=== PATIENT | female | born 1940 | race Caucasian/White ===

== ENCOUNTER 2023-06-11 14:59 | Observation (INO) | payer OTHER ==
[~2023-06-11] VITALS: Ht 149.9 cm; Wt 60.5 kg
[2023-06-11] VITALS (10 sets, daily range): BP systolic 115–166; BP diastolic 48–100; PULSE 60–70; RESP 13–22; TEMP 97.9–98.2; O2SAT 97–100
[2023-06-11 15:54] LABS: Eosinophils # (auto) 0.1 10 ^3/uL (0-0.8); Lymphocytes # (auto) 2.2 10 ^3/uL (0.4-5.4); Lymphocytes % (auto) 16.9 % (10.0-50.0); Mean Corpuscular Hgb Conc. 27.9 g/dL (32.0-36.0); Monocytes # (auto) 2.1 10 ^3/uL (0-1.3); Neutrophils # (auto) 8.4 10 ^3/uL (1.6-8.6); Nucleated Red Blood Cells % 1.8 %
[2023-06-11 15:56] LABS: Basophils # (auto) 0 10 ^3/uL (0-0.2); Basophils % (auto) 0.4 % (0.0-2.0); Eosinophils % (auto) 1.1 % (0.0-7.0); Hematocrit 20.4 % (36.0-46.0); Mean Corpuscular Hemoglobin 18.5 pg (28.0-32.0); Mean Corpuscular Volume 66.3 fL (80.0-100.0); Monocytes % (auto) 16.5 % (0.0-12.0); Neutrophils % (auto) 65.1 % (37.0-80.0); Red Blood Cells 3.08 10^6/uL (4.0-5.20); Red Cell Distribution Width 19.6 % (11.8-14.3); White Blood Cell 12.9 10^3/uL (4.4-10.8)
[2023-06-11 16:03] LABS: Hemoglobin 5.7 g/dL (12.2-16.2)
[2023-06-11 16:11] LABS: Alanine Aminotransferase 10 U/L (7-40); Albumin 3.9 g/dL (3.2-4.8); Alkaline Phosphatase 50 U/L (46-116); Anion Gap 12 (5-15); Aspartate Aminotransferase 13 U/L (13-40); BUN/Creatinine Ratio 20.2 (10.0-20.0); Bilirubin, Total 0.6 mg/dL (0.2-1.0); Blood Urea Nitrogen 19 mg/dL (9-23); Carbon Dioxide 18 mmol/L (20-30); Chloride 107 mmol/L (98-107); Glucose 161 mg/dL (74-106); INR 2.29 (0.9-1.15); Partial Thromboplastin Time 36.3 SEC (24.5-34.5); Potassium 4.6 mmol/L (3.5-5.1); Prothrombin Time 22.8 sec (9.3-11.8); Sodium 137 mmol/L (136-145); Total Protein 6.4 g/dL (5.7-8.2)
[2023-06-11 16:28] LABS: Hypochromia Marked
[2023-06-11 16:29] LABS: Ovalocytes FEW
[2023-06-11 16:30] LABS: Platelet Estimate Adequate; Target Cell FEW; Tear Drop Cells FEW
[2023-06-11] MEDS ORDERED: PIPERACILLIN-TAZOB 3.375GM 100 ML IV ONE (16:45)
[2023-06-11] MEDS ORDERED: FUROSEMIDE 40 MG/4 ML VIAL IV ONE (19:30)
[2023-06-11] MEDS ORDERED: MORPHINE SULFATE INJ 2 MG/ml SYRG IV PRN (20:15)
[2023-06-11] MEDS ORDERED: SOD CHL 0.45% 1,000 ML IV ONE (20:15)
[2023-06-11] MEDS ORDERED: NITROGLYCERIN 0.4 MG SL TAB SL PRN (20:15)
[2023-06-11] MEDS ORDERED: CIPROFLOXACIN 400MG/200ML 200 ML IV SCH (22:00)
[2023-06-11 23:03] LABS: Urine Bacteria MANY /hpf (None Seen); Urine Blood Negative /uL (Negative); Urine Clarity Clear (Clear); Urine Color Colorless (Yellow); Urine Hyaline Cast FEW /lpf (0 - 2); Urine Protein, UAD Negative (Negative); Urine Urobilinogen Normal (Negative); Urine WBC 4 /hpf (0 - 5); Urine pH 5.5 (5.0-8.0)
[2023-06-12] VITALS (15 sets, daily range): BP systolic 104–144; BP diastolic 56–82; PULSE 59–62; RESP 13–24; TEMP 97.7–98.3; O2SAT 94–100
[2023-06-12 05:09] LABS: Hematocrit 29.5 % (36.0-46.0); Hemoglobin 9.4 g/dL (12.2-16.2); Mean Corpuscular Hemoglobin 23.5 pg (28.0-32.0); Mean Corpuscular Volume 73.7 fL (80.0-100.0)
[2023-06-12 05:18] LABS: Albumin 3.8 g/dL (3.2-4.8); Alkaline Phosphatase 49 U/L (46-116); Anion Gap 9 (5-15); Aspartate Aminotransferase 12 U/L (13-40); Bilirubin, Total 1.3 mg/dL (0.2-1.0); Blood Urea Nitrogen 15 mg/dL (9-23); Calcium 8.6 mg/dL (8.7-10.4); Carbon Dioxide 22 mmol/L (20-30); Chloride 108 mmol/L (98-107); Glucose 117 mg/dL (74-106); Potassium 3.7 mmol/L (3.5-5.1); Sodium 139 mmol/L (136-145); Total Protein 6.4 g/dL (5.7-8.2)
[2023-06-12 05:25] LABS: BUN/Creatinine Ratio 15.6 (10.0-20.0)
[2023-06-12 05:35] LABS: Alanine Aminotransferase < 9 U/L (7-40)
[2023-06-12 05:37] LABS: Red Cell Distribution Width 27.5 % (11.8-14.3)
[2023-06-12 05:38] LABS: Basophils % (manual) 0 (0.0-2.0); Blast Cells 0; Metamyelocytes % 0; Myelocytes % 0; Promyelocytes % 0; Reactive Lymphocytes 0
[2023-06-12 08:12] LABS: Anisocytosis Moderate; Band Neutrophils % (manual) 3; Eosinophils % (manual) 1 (0-7); Hypochromia Marked; Lymphocytes % (manual) 10 (10.0-50.0); Monocytes % (manual) 7 (0-12); Platelet Estimate Adequate
[2023-06-12 08:13] LABS: Ovalocytes FEW; Stomatocytes Few; Target Cell FEW; Tear Drop Cells FEW
[2023-06-12] MEDS ORDERED: FUROSEMIDE 100 MG/10ML VIAL IV ONE (09:30)
[2023-06-12] MEDS: metroNIDAZOLE 500MG/100ML 100 ML IV SCH ×3 (09:53→22:28)
[2023-06-12] MEDS: AZITHROMYCIN 500MG/ 250ML 250 ML IV SCH (09:53)
[2023-06-12] MEDS: cefTRIAXone 1GM/50ML D5W 50 ML IV SCH (09:53)
[2023-06-12] MEDS ORDERED: TIMO0.5S66 EACHEYE (10:02)
[2023-06-12] MEDS ORDERED: BRIM0.159 OP (10:02)
[2023-06-12] MEDS ORDERED: LATA0.008 EACHEYE (10:02)
[2023-06-12] MEDS ORDERED: SIMV40TA18 PO (10:02)
[2023-06-12] MEDS ORDERED: BENA-30 PO (10:02)
[2023-06-12] MEDS ORDERED: OMEP20TA PO (10:02)
[2023-06-12] MEDS ORDERED: RIVA20TA PO (10:02)
[2023-06-12] MEDS: ALBUTEROL MEDNEB 2.5 mg/3ml NEB NEB SCH ×2 (13:55→22:25)
[2023-06-12] MEDS: PANTOPRAZOLE 40 MG/10 ML VIAL INJ IV SCH (22:26)
[2023-06-13] VITALS (8 sets, daily range): BP systolic 120–144; BP diastolic 52–65; PULSE 60–69; RESP 16–21; TEMP 36.8; O2SAT 93–100
[2023-06-13 06:05] LABS: INR 1.11 (0.9-1.15); Prothrombin Time 11.6 sec (9.3-11.8)
[2023-06-13] MEDS: ALBUTEROL MEDNEB 2.5 mg/3ml NEB NEB SCH ×2 (07:22→14:42)
[2023-06-13] MEDS: PANTOPRAZOLE 40 MG/10 ML VIAL INJ IV SCH (10:41)
[2023-06-13] MEDS: metroNIDAZOLE 500MG/100ML 100 ML IV SCH (10:41)
[2023-06-13] MEDS: AZITHROMYCIN 500MG/ 250ML 250 ML IV SCH (10:42)
[2023-06-13] MEDS: cefTRIAXone 1GM/50ML D5W 50 ML IV SCH (10:47)
[2023-06-13 11:09] LABS: Alanine Aminotransferase 10 U/L (7-40); Albumin 3.7 g/dL (3.2-4.8); Alkaline Phosphatase 46 U/L (46-116); Anion Gap 5 (5-15); Aspartate Aminotransferase 15 U/L (13-40); BUN/Creatinine Ratio 13.6 (10.0-20.0); Blood Urea Nitrogen 9 mg/dL (9-23); Calcium 8.7 mg/dL (8.5-10.1); Carbon Dioxide 25 mmol/L (20-30); Chloride 109 mmol/L (98-107); Glucose 113 mg/dL (74-106); Potassium 3.6 mmol/L (3.5-5.1); Sodium 139 mmol/L (136-145)
[2023-06-13 11:10] LABS: Eosinophils # (auto) 0.2 10 ^3/uL (0-0.8); Hemoglobin 9.2 g/dL (12.2-16.2); Nucleated Red Blood Cells % 0.3 %; Red Cell Distribution Width 26.8 % (11.8-14.3); Total Protein 6.3 g/dL (5.7-8.2)
[2023-06-13 11:13] LABS: Basophils # (auto) 0 10 ^3/uL (0-0.2); Basophils % (auto) 0.4 % (0.0-2.0); Eosinophils % (auto) 1.4 % (0.0-7.0); Hematocrit 29.5 % (36.0-46.0); Lymphocytes # (auto) 1.1 10 ^3/uL (0.4-5.4); Lymphocytes % (auto) 9.8 % (10.0-50.0); Mean Corpuscular Hemoglobin 23.1 pg (28.0-32.0); Mean Corpuscular Hgb Conc. 31.3 g/dL (32.0-36.0); Mean Corpuscular Volume 73.8 fL (80.0-100.0); Monocytes # (auto) 1.9 10 ^3/uL (0-1.3); Monocytes % (auto) 16.9 % (0.0-12.0); Neutrophils # (auto) 7.9 10 ^3/uL (1.6-8.6); Neutrophils % (auto) 71.5 % (37.0-80.0); Red Blood Cells 3.99 10^6/uL (4.0-5.20); White Blood Cell 11.1 10^3/uL (4.4-10.8)
[2023-06-13] MEDS ORDERED: AUG875T PO (13:42)
[2023-06-13] MEDS ORDERED: DOXY-448 PO (13:42)
[2023-06-13] MEDS ORDERED: FUROSEMIDE 20 MG/2 ML VIAL IV ONE (13:45)
== END 2023-06-13 14:40 | disposition home or self-care (01) ==
LOC: ER 14:59 → TELE 20:15 → TELE-WESTW 06-12 07:48
PROVIDERS: ADMIT Internal Medicine; ATTEND Internal Medicine
DX: K92.2 Gastrointestinal hemorrhage, unspecified (principal); D64.9 Anemia, unspecified; R04.2 Hemoptysis; D62 Acute posthemorrhagic anemia; I48.91 Unspecified atrial fibrillation; J84.9 Interstitial pulmonary disease, unspecified; K80.10 Calculus of gallbladder with chronic cholecystitis without obstruction; D68.59 Other primary thrombophilia; J96.01 Acute respiratory failure with hypoxia; E11.9 Type 2 diabetes mellitus without complications; K44.9 Diaphragmatic hernia without obstruction or gangrene; C18.9 Malignant neoplasm of colon, unspecified; J98.11 Atelectasis; I25.10 Atherosclerotic heart disease of native coronary artery without angina pectoris; K82.8 Other specified diseases of gallbladder; I70.0 Atherosclerosis of aorta; I11.0 Hypertensive heart disease with heart failure; I50.9 Heart failure, unspecified; E78.5 Hyperlipidemia, unspecified; I42.9 Cardiomyopathy, unspecified; Z95.0 Presence of cardiac pacemaker; Z79.01 Long term (current) use of anticoagulants; Z88.1 Allergy status to other antibiotic agents; Z90.710 Acquired absence of both cervix and uterus; Z85.048 Personal history of other malignant neoplasm of rectum, rectosigmoid junction, and anus; Z79.899 Other long term (current) drug therapy
CPT/HCPCS: 36415; 36430; 71045; 71250; 74176; 76705; 80053; 81001; 82270; 82962; 83880; 84484; 85007; 85025; 85027; 85610; 85730; 86850; 86900; 86901; 86920; 93005; 94640; 96361; 96365; 96366; 96367; 96368; 96375; 96376; 99291; C9113; G0378; J0456; J0696; J1940; J2543; J3490; J7030; P9016